=== PATIENT | male | born 1990 ===

== ENCOUNTER 2016-08-16 01:20 | Inpatient (IN) | payer OTHER ==
[2016-08-16 02:32] VITALS: BMI 32.8
[2016-08-16] MEDS ORDERED: Sodium Chloride 0.9% 1,000 ML IV STA (02:52)
--- NOTE | 2016-08-16 03:04 | ED PDOC ---
Arrival/HPI - General Chief Complaint: Back Pain Time Seen by Provider: 08/16/16 02:42 Historian: Patient - History of Present Illness Narrative History of Present Illness (Text): 08/16/16 03:00 Lester Dinero is a 26 year old male, with no significant past medical history, presents to the emergency department complaining of 1 day duration of intermittent left lower back/flank discomfort which radiates to the left abdomen. Patient states that he works out, but is unsure if symptoms are related to it. Denies any history of blunt trauma. States that he still has the pain, but has subsided significantly since onset. Denies fever, chills, headache , dizziness, chest pain, difficulty breathing, abdominal pain, nausea, vomiting , diarrhea, urinary symptoms, or any other complaints at this time. Time/Duration: Other (1 day ) Symptom Onset: Gradual Symptom Course: Unchanged, Intermittent Severity Level: Mild Past Medical History - Provider Review Nursing Documentation Reviewed: Yes - Psychiatric Hx Substance Use: No Family/Social History - Physician Review Nursing Documentation Reviewed: Yes Family/Social History: No Known Family HX Smoking Status: no Hx Alcohol Use: No Hx Substance Use: No Allergies/Home Meds Allergies/Adverse Reactions: Allergies No Known Allergies Allergy (Verified 08/16/16 02:32) Home Medications: Home Meds Medication Instructions Recorded Confirmed No Known Home Med 08/16/16 08/16/16 Review of Systems - Physician Review All systems were reviewed & negative as marked: Yes - Review of Systems Constitutional: absent: Fatigue, Fevers Respiratory: Normal. absent: SOB, Cough Cardiovascular: Normal. absent: Chest Pain, Palpitations Gastrointestinal: Abdominal Pain (left abdomen ). absent: Diarrhea, Nausea, Vomiting Genitourinary Male: Normal. absent: Dysuria, Frequency Musculoskeletal: Back Pain (left lower back/flank pain ). absent: Arthralgias Neurological: Normal. absent: Headache, Dizziness Psychiatric: Normal Physical Exam Vital Signs Reviewed: Yes Vital Signs Temp Pulse Resp BP Pulse Ox 08/16/16 09:09 98.6 F 71 18 113/56 L 98 08/16/16 07:56 75 18 118/42 L 98 08/16/16 02:42 98.2 F 76 18 134/70 99 Temperature: Afebrile Blood Pressure: Normal Pulse: Regular Respiratory Rate: Normal Appearance: Positive for: Well-Appearing, Non-Toxic, Comfortable Pain Distress: None Mental Status: Positive for: Alert and Oriented X 3 - Systems Exam Head: Present: Atraumatic, Normocephalic Pupils: Present: PERRL Extroacular Muscles: Present: EOMI Conjunctiva: Present: Normal Mouth: Present: Moist Mucous Membranes Respiratory/Chest: Present: Clear to Auscultation, Good Air Exchange. No: Respiratory Distress, Accessory Muscle Use Cardiovascular: Present: Regular Rate and Rhythm, Normal S1, S2. No: Murmurs Abdomen: Present: Normal Bowel Sounds. No: Tenderness, Distention, Peritoneal Signs, Rebound, Guarding Back: Present: Normal Inspection. No: CVA Tenderness, Midline Tenderness, Paraspinal Tenderness Upper Extremity: Present: Normal Inspection. No: Cyanosis, Edema Lower Extremity: Present: Normal Inspection. No: Edema Neurological: Present: GCS=15, CN II-XII Intact, Speech Normal Skin: Present: Warm, Dry, Normal Color. No: Rashes Psychiatric: Present: Alert, Oriented x 3, Normal Insight, Normal Concentration Medical Decision Making ED Course and Treatment: 08/16/16 03:08 Impression: A 26 year old male who presents to the emergency department complaining of 1 day duration of intermittent left lower back/ flank pain radiation to the left abdomen. Plan: -- CT abdomen pelvis -- Labs -- IV fluids -- Toradol -- Urinalysis -- Reassess and disposition Progress Notes: 08/16/16 07:30 Case was d/w who accepted pt. to his service. - Lab Interpretations Microbiology Results: Microbiology Results 08/16/16 07:00 Blood-Venous Blood Culture - Preliminary NO GROWTH AFTER 24 HOURS 08/16/16 06:30 Blood-Venous Blood Culture - Preliminary NO GROWTH AFTER 24 HOURS Lab Results: 08/16/16 02:59 08/16/16 02:59 Lab Results 08/16/16 08:35: pCO2 40, pO2 99.0, HCO3 24.2, ABG pH 7.39, ABG Total CO2 25.4, ABG O2 Saturation 99.2 H, ABG O2 Content 16.4, ABG Base Excess -0.7, ABG Hemoglobin 12.0, ABG Carboxyhemoglobin 1.8 H, POC ABG HHb (Measured) 0.8, ABG Methemoglobin 0.7, ABG O2 Capacity 16.5, Hgb O2 Saturation 96.7, FiO2 21.0 08/16/16 02:59: WBC 9.9, RBC 4.87, Hgb 13.4 L, Hct 39.6 L, MCV 81.3, MCH 27.5, MCHC 33.8, RDW 13.3, Plt Count 247, MPV 10.7, Gran % 64.0, Lymph % (Auto) 24.0, Wirt % (Auto) 8.0 H, Eos % (Auto) 3.5, Baso % (Auto) 0.5, Gran # 6.33, Lymph # 2.4, Wirt # 0.8 H, Eos # 0.4, Baso # 0.05 08/16/16 02:59: Sodium 138, Potassium 4.0, Chloride 99, Carbon Dioxide 30, Anion Gap 13, BUN 16, Creatinine 1.4, Est GFR ( Amer) > 60, Est GFR (Non- Af Amer) > 60, Random Glucose 84, Calcium 9.0, Total Bilirubin 0.6, AST 42, ALT 43, Alkaline Phosphatase 55, Lactate Dehydrogenase 664, Total Creatine Kinase 640 H, CK-MB (CK-2) 2.3, CK-MB (CK-2) % 0.4 L, Troponin I < 0.01, Total Protein 7.7, Albumin 4.2, Globulin 3.5, Albumin/Globulin Ratio 1.2, Amylase 124, Lipase 140 08/16/16 02:55: Urine Color Yellow, Urine Appearance Clear, Urine pH 6.0, Ur Specific [place] 1.020, Urine Protein Negative, Urine Glucose (UA) Negative, Urine Ketones Negative, Urine Blood Trace-intact H, Urine Nitrate Negative, Urine Bilirubin Negative, Urine Urobilinogen 0.2, Ur Leukocyte Esterase Negative , Urine RBC 0 - 2, Urine WBC 0 - 2, Ur Epithelial Cells 0 - 2 I have reviewed the lab results: Yes - RAD Interpretation Radiology Orders: 08/16/16 02:51 ABD & PELVIS W/O PO OR IV CONT [CT] Stat 08/16/16 08:29 CHEST PORTABLE [RAD] Stat Insole Stiffener: Radiologist - Medication Orders Current Medication Orders: Albuterol/Ipratropium (Duoneb 3 Mg/0.5 Mg (3 Ml) Ud) 3 ml IH [id number] KALEB Last Admin: 08/17/16 14:01 Dose: 3 ml Heparin Sodium (Porcine) (Heparin) 5,000 units SC Q8H KALEB PRN Reason: Protocol Last Admin: 08/17/16 09:23 Dose: 5,000 units Hydromorphone HCl (Dilaudid) 0.5 mg IVP Q4H PRN PRN Reason: Pain, moderate (4-7) Last Admin: 08/16/16 23:35 Dose: 0.5 mg Re-Assess: [facility] Pain Assessment Document 08/17/16 00:35 KTB (Rec: 08/17/16 04:40 KTB [id number]) Pain Reassessment Is this a pain reassessment? Yes Sleep Is patient sleeping during reassessment? No Presence of Pain Presence of Pain No Ceftriaxone Sodium (Rocephin 1 Gram Ivpb) 1 gm in 100 mls @ 100 mls/hr IVPB DAILY KALEB PRN Reason: Protocol Last Admin: 08/17/16 09:15 Dose: 100 mls/hr Sodium Chloride (Sodium Chloride 0.9%) 1,000 mls @ 150 mls/hr IV .Q6H40M KALEB Stop: 08/19/16 02:54 Last Infusion: 08/17/16 02:51 Dose: 150 mls/hr Doxycycline Hyclate 100 mg/ (Sodium Chloride) 100 mls @ 100 mls/hr IVPB Q12 KALEB PRN Reason: Protocol Ondansetron HCl (Zofran Inj) 4 mg IVP Q4H PRN PRN Reason: Nausea/Vomiting Pantoprazole Sodium (Protonix Ec Tab) 40 mg PO 0630 [facility] Last Admin: 08/17/16 05:57 Dose: 40 mg Discontinued Medications Sodium Chloride (Sodium Chloride 0.9%) 1,000 mls @ 999 mls/hr IV .Q1H1M STA Stop: 08/16/16 03:52 Last Admin: 08/16/16 03:44 Dose: 999 mls/hr Azithromycin (Zithromax 500mg In Ns) Confirm Administered Dose 500 mg in 250 mls @ ud IVPB .STK-MED ONE Stop: 08/16/16 06:44 Ceftriaxone Sodium (Rocephin 1 Gram Ivpb) Confirm Administered Dose 1 gm in 100 mls @ ud IVPB .STK-MED ONE Stop: 08/16/16 06:44 Ceftriaxone Sodium (Rocephin 1 Gram Ivpb) 1 gm in 100 mls @ 100 mls/hr IVPB STAT STA Stop: 08/16/16 06:59 Azithromycin (Zithromax 500mg In Ns) 500 mg in 250 mls @ 167 mls/hr IVPB STAT STA Stop: 08/16/16 07:29 Iohexol (Omnipaque 350 100 Ml) Confirm Administered Dose 350 mg .ROUTE .STK-MED ONE Stop: 08/16/16 11:14 Ketorolac Tromethamine (Toradol) 30 mg IVP ONCE ONE Stop: 08/16/16 02:53 Last Admin: 08/16/16 03:44 Dose: 30 mg Morphine Sulfate (Morphine) Confirm Administered Dose 2 mg .ROUTE .STK-MED ONE Stop: 08/16/16 06:44 Morphine Sulfate (Morphine) 2 mg IVP STAT STA Stop: 08/16/16 06:01 Pantoprazole Sodium (Protonix Ec Tab) 40 mg PO STAT STA Stop: 08/16/16 08:03 Last Admin: 08/16/16 08:56 Dose: 40 mg - Didieribe Statement The provider has reviewed the documentation as recorded by the Pepito Riddle Provider Attestation: All medical record entries made by the Pepito were at my direction and personally dictated by me. I have reviewed the chart and agree that the record accurately reflects my personal performance of the history, physical exam, medical decision making, and the department course for this patient. I have also personally directed, reviewed, and agree with the discharge instructions and disposition. Disposition/Present on Arrival - Present on Arrival Any Indicators Present on Arrival: No History of DVT/PE: No History of Uncontrolled Diabetes: No Urinary Catheter: No History of Decub. Ulcer: No History Surgical Site Infection Following: None - Disposition Have Diagnosis and Disposition been Completed?: Yes Diagnosis: Back pain, Rhabdomyolysis, Pneumonia, Pleural effusion Disposition: HOSPITALIZED Disposition Time: 08:26 Patient Plan: Admission Patient Problems: Current Active Problems Problem Status Onset Back pain Acute Pleural effusion Acute Pneumonia Acute Rhabdomyolysis Acute Condition: STABLE
[2016-08-16 03:23] LABS: ADD MANUAL DIFF? NO
[2016-08-16 03:25] LABS: URINE BILIRUBIN NEGATIVE (NEGATIVE); URINE BLOOD TRACE-INTACT (NEGATIVE); URINE GLUCOSE (UA) NEGATIVE (NEGATIVE); URINE KETONE NEGATIVE (NEGATIVE); URINE LEUKOCYTE ESTERASE NEGATIVE Leu/uL (NEGATIVE); URINE PROTEIN NEGATIVE mg/dL (<30 mg/dL); URINE UROBILINOGEN 0.2 E.U./dL (<1 E.U./dL)
[2016-08-16 03:28] LABS: BASO # 0.05 K/mm3 (0.0-2.0); BASO % 0.5 % (0.0-3.0); EOS # 0.4 (0.0-0.7); EOS % 3.5 % (1.5-5.0); GRAN # 6.33 (1.4-6.5); HEMATOCRIT 39.6 % (42.0-52.0); LYMPH # 2.4 (1.2-3.4); MEAN CELL VOLUME 81.3 fL (80.0-105.0); MEAN CORPUSCULAR HEMOGLOBIN 27.5 pg (25.0-35.0); MEAN CORPUSCULAR HGB CONC 33.8 g/dl (31.0-37.0); MEAN PLATELET VOLUME 10.7 fl (7.0-11.0); MONO # 0.8 (0.1-0.6); PLATELET COUNT 247 10^3/uL (120.0-450.0); RED CELL DISTRIBUTION WIDTH 13.3 % (11.5-14.5); WHITE BLOOD COUNT 9.9 10^3/ul (4.5-11.0)
[2016-08-16 03:32] LABS: URINE APPEARANCE CLEAR (CLEAR); URINE COLOR YELLOW (YELLOW)
[2016-08-16 03:33] LABS: ALB/GLOB RATIO 1.2 (1.1-1.8); ALKALINE PHOSPHATASE 55 U/L (38-133); ALT/SGPT 43 U/L (7-56); AMYLASE 124 U/L (35-125); AST/SGOT 42 U/L (15-59); BILIRUBIN,TOTAL 0.6 mg/dL (0.2-1.3); BLOOD UREA NITROGEN 16 mg/dL (7-21); CARBON DIOXIDE 30 mmol/L (21-33); CHLORIDE 99 mmol/L (95-110); GFR AFRICAN-AMERICAN > 60; GLUCOSE,RANDOM 84 mg/dL (70-110); LIPASE 140 U/L (23-300); SODIUM 138 mmol/L (132-148); TOTAL PROTEIN 7.7 g/dL (5.8-8.3)
[2016-08-16 03:35] LABS: URINE EPITHELIAL CELLS 0 - 2 /hpf (0-5); URINE RBC 0 - 2 /hpf (0-2); URINE WBC 0 - 2 /hpf (0-6)
[2016-08-16] MEDS ORDERED: cefTRIAXone 1 gm in NS 100ml IVPB STA (06:00)
[2016-08-16] MEDS ORDERED: Azithromycin 500MG/NS 250ml 500 MG/250 ML BAG IVPB STA (06:00)
[2016-08-16] MEDS ORDERED: Morphine 2 mg/ml ISec IVP STA (06:00)
[2016-08-16] MEDS ORDERED: Morphine 2 mg/ml ISec ONE (06:43)
[2016-08-16] MEDS ORDERED: Azithromycin 500MG/NS 250ml 500 MG/250 ML BAG IVPB ONE (06:43)
[2016-08-16] MEDS ORDERED: cefTRIAXone 1 gm 1 GM/100 ML BAG IVPB ONE (06:43)
[2016-08-16 07:14] LABS: TROPONIN I < 0.01 ng/mL
--- NOTE | 2016-08-16 07:36 | CT ---
PROCEDURE: CT Abdomen and Pelvis without intravenous contrast HISTORY: left flank pain COMPARISON: None. TECHNIQUE: Without contrast.. Contrast Dose: 0 Radiation dose: Total exam DLP = not indicated mGy-cm. This CT exam was performed using one or more of the following dose reduction techniques: Automated exposure control, adjustment of the mA and/or kV according to patient size, and/or use of iterative reconstruction technique. FINDINGS: LOWER THORAX: Minimal pleural thickening at posterior left lung base, nonspecific. LIVER: Hepatomegaly. Diffusely diminished attenuation of the liver consistent with fatty infiltration. No mass. No biliary ductal dilatation. GALLBLADDER AND BILE DUCTS: Gallbladder contracted. No calcified gallstones identified. PANCREAS: Unremarkable. No gross lesion or ductal dilatation. SPLEEN: Unremarkable. ADRENALS: Unremarkable. No mass. KIDNEYS AND URETERS: Unremarkable. No hydronephrosis. No solid mass. No renal or ureteral calculus. VASCULATURE: Unremarkable. No aortic aneurysm. BOWEL: Unremarkable. No obstruction. No gross mural thickening. APPENDIX: Unremarkable. Normal appendix. PERITONEUM: Unremarkable. No free fluid. No free air. LYMPH NODES: Unremarkable. No enlarged lymph nodes. BLADDER: Poorly distended. No gross abnormality. REPRODUCTIVE: Unremarkable prostate. BONES: No acute fracture. OTHER FINDINGS: None. IMPRESSION: Hepatomegaly with diffuse fatty infiltration of the liver. No evidence of urinary calculus or urinary tract obstruction. No additional abnormality. Preliminary interpretation of this examination was reported by [employer] at 4:07 a.m. on 08/16/2016. There is concurrence of this report with the preliminary interpretation.
[2016-08-16] MEDS ORDERED: Pantoprazole 40 mg EC Tab PO STA (08:02)
[2016-08-16 08:38] LABS: ARTERIAL BLOOD GAS HCO3 24.2 mmol/L (21-28); ARTERIAL BLOOD GAS O2 CAPACITY 16.5 mL/dl (16-24); ARTERIAL BLOOD GAS O2 CONTENT 16.4 ML/dl (15-23); ARTERIAL BLOOD GAS PH 7.39 (7.35-7.45); ARTERIAL BLOOD HGB O2 SAT 96.7 % (95.0-98.0); CARBOXYHEMOGLOBIN 1.8 % (0.5-1.5); HHB 0.8 % (0-5); METHEMOGLOBIN 0.7 % (0.0-3.0)
[2016-08-16] MEDS: Sodium Chloride 0.9% 1,000 ML IV SCH ×2 (08:56→20:15)
--- NOTE | 2016-08-16 09:28 | RAD ---
HISTORY: Not provided COMPARISON: No prior. FINDINGS: LUNGS: No active pulmonary disease. PLEURA: No significant pleural effusion identified, no pneumothorax apparent. CARDIOVASCULAR: Normal. OSSEOUS STRUCTURES: No significant abnormalities. VISUALIZED UPPER ABDOMEN: Normal. OTHER FINDINGS: None. IMPRESSION: No active disease.
[2016-08-16 09:30] LABS: INR 0.94 (0.93-1.08); PARTIAL THROMBOPLASTIN TIME 26.8 Seconds (23.7-30.8)
[2016-08-16 09:31] LABS: PHOSPHOROUS 3.7 mg/dL (2.5-4.5); URIC ACID 4.8 mg/dL (3.5-8.5)
[2016-08-16 09:44] LABS: D DIMER 0.2 mg/L FEU (0-0.50)
[2016-08-16] MEDS: cefTRIAXone 1 gm 1 GM/100 ML BAG IVPB SCH (10:44)
[2016-08-16] MEDS: Albuterol-Ipratrop 3 mg / 0.5 (3 ml) UD IH SCH ×4 (11:12→23:23)
[2016-08-16] MEDS ORDERED: Iohexol 350 MG/100 ML VIAL ONE (11:13)
--- NOTE | 2016-08-16 11:15 | CARD ---
APPROVED REPORT EKG Measurement Heart [id number] <Conclusion> Normal sinus rhythm Normal ECG
--- NOTE | 2016-08-16 11:46 | HP ---
HISTORY OF PRESENT ILLNESS: The patient is a 26-year-old male who presented to the Emergency Room wi th 2 days' complaints of left flank pain, left chest pain, left-sided rib cage pain which increases w ith movement, which has been increasing in severity and frequency over the last 2 days. The patient also reports that with deep inspiration the pain gets worse. According to the ER physician boaz frost, the patient presented with a 1-2 day complaint of left lower back pain, left rib cage pain, left f lank pain radiating to the left side of the abdomen in the middle of the abdomen, which is worse with movement. REVIEW OF SYSTEMS: A 13-system review was done. Pertinent positive and negative dictated above. CODE STATUS: Full code. LIVING WILL AND ADVANCED DIRECTIVE: None. HEIGHT: 5 feet 11 inches. WEIGHT: 235 pounds. BMI: 33. HOME MEDICATIONS: None. SOCIAL HISTORY: Positive for social alcohol. Denies drug use. Denies communicable transmissible di sease. Denies smoking. FAMILY HISTORY: Father is 55 and mother is 50 with no reported medical conditions. OCCUPATIONAL HISTORY: The patient works in a warehouse. PAST SURGICAL HISTORY: Positive for jaw surgery according to the patient. The patient is seen in stretcher #3 in the Emergency Room, then the patient was seen in room 375, bed 2. PHYSICAL EXAMINATION: VITAL SIGNS: T-max 98.6, pulse 75-76, blood pressure 113/56, 118/42, respirations 18, O2 sat 98%. T he patient is seen lying in the bed. HEAD: Normocephalic, atraumatic. HEENT: Shows pink conjunctivae. No oropharyngeal lesion. No neck rigidity. Dry oral mucosa. [place] conjunctivae, anicteric sclerae. CHEST: Symmetrical. Kyphosis. LUNGS: Shows questionable decreased breath sound at the left base, occasional rhonchi, left more rosa maria n the right. CARDIOVASCULAR: S1, S2, regular rhythm. Questionable systolic murmur left sternal border, left se[place] intercostal space. ABDOMEN: Soft, positive bowel sounds. Positive left lateral anterior rib cage tenderness. Positive left upper quadrant tenderness. No costovertebral angle tenderness. No hepatosplenomegaly palpated . No guarding, no rigidity, no rebound tenderness. GENITALIA: Male. RECTAL: Deferred. EXTREMITIES: Shows no pitting edema, no calf tenderness, no Homans' sign. NEUROLOGIC: The patient is alert, awake, oriented x 3. Cranial nerves II-XII intact. Gait examinat ion is not tested. Neuro examination without any gross deficit. MUSCULOSKELETAL: Shows a body mass index of 33. PSYCHIATRIC: Negative for any auditory or visual hallucinations. Negative for suicidal or homicidal ideation. Negative for any psychiatric issues. DIAGNOSTICS: WBC 9.9, hemoglobin and hematocrit 13.4 and 39.6, platelets 247. PT, PTT 10.1 and 26.8 . D-dimer 0.20. ABG on room air, pH of 7.39, pCO2 of 40, pO2 99, bicarb 24, saturation 99.2. Sodiu m 138, potassium 4.0, chloride 99, CO2 30, anion gap 13, BUN 16, creatinine 1.4, which is high normal , GFR greater than 60, glucose 84. Uric acid 4.8, phosphorus 3.7. LFTs are normal. CPK 640. Tropo sharmila 0.01. Cholesterol 141, LDL 68, HDL 32, triglycerides 207. Amylase and lipase is normal. Urinal ysis, pH 6.0, specific gravity 1.020, trace blood. The patient had CT of the abdomen and pelvis done . CT scan of the abdomen and pelvis was done without p.o. or IV contrast, which shows left lung base pleural thickening, etiology undetermined, hepatomegaly with hepatic fatty infiltration. Chest x-ra y was reviewed. EKG done in the Emergency Room shows sinus rhythm, S wave in lead 3. The patient wa s seen in the Emergency Room by the ER physician, Dr. Cardona. The patient was given IV fluid. T he patient was given IV antibiotic. The patient was given Zithromax, Rocephin, morphine. The patien t was advised to be admitted. IMPRESSION: 1. Left-sided chest pain, left flank pain and left abdominal pain, questionable left lower lobe tu y pneumonia versus pleural effusion. 2. Possible mild rhabdomyolysis with elevated CPK. 3. Hypotension. 4. Hypovolemia. 5. Mild normocytic anemia. 6. Trace microscopic hematuria. 7. Left lower lobe pleural thickening versus effusion versus infiltrate. 8. Hepatomegaly with fatty infiltration of the liver and hepatic steatosis. 9. Morbid obesity with elevated body mass index of 33. 10. History of protein supplements and use. 11. Possible myoglobinuria. PLAN: At this time, the patient has been admitted by Dr. Cardona to med/surg floor. The patient has been ordered CRP, drug screen, serial labs, myoglobin has been ordered, ESR, CBC, blood cultures have been ordered. The patient is started on Dilaudid 0.5 mg IV q. 4 p.r.n., DuoNeb nebulizer every 6 hours, heparin 5000 subQ q. 8, Protonix 40 mg daily, Rocephin 1 gram IV daily, 0.9 normal saline at 150 mL an hour, Zofran [address] of the chest with contrast ordered, EKG ordered, echo with Doppler ordered. A regular diet ordered. Out of bed as ordered. The patient was explained about the details of his medical condition, need for further diagnostic and therapeutic intervention, need for further treatment was discussed and explained to the patient and all questions and concerns answered to his satisfaction. The patient's further management will be dependent upon the patient's clinical condition, hemodynamic status, and as per patient's response to therapeutic intervention, as per patient's diagnostic test results. Dictated and electronically signed, not read. Misha Dunn MD cc: [id number] TT: 08/16/2016 11:45:16 cn
--- NOTE | 2016-08-16 12:34 | CT ---
PROCEDURE: CT Chest with contrast HISTORY: CHEST PAIN COMPARISON: None. TECHNIQUE: Contiguous axial images were obtained through the chest with intravenous contrast enhancement. Sagittal and coronal reconstructions were performed. IV contrast: 100 mL Omnipaque 350 Radiation dose (DLP): 873.13 mGy-cm. This CT exam was performed using one or more of the following dose reduction techniques: Automated exposure control, adjustment of the mA and/or kV according to patient size, and/or use of iterative reconstruction technique. FINDINGS: LUNGS: Mild multifocal ground-glass opacities in the right lower lobe common nonspecific. Possible pneumonia. Normal trace right pleural effusion. Small left pleural effusion. Minimal bilateral lower lobe compressive atelectasis, left greater than right. MEDIASTINUM: Unremarkable thoracic aorta. No aneurysm or dissection. Normal sized heart. Main pulmonary artery unremarkable. No vascular congestion. No lymphadenopathy. Soft tissue density in anterior superior mediastinum consistent with residual thymic tissue. PLEURA: As above. Trace right and small left pleural effusion. BONES: No fracture. No destructive lesion. UPPER ABDOMEN: Diminished attenuation of the liver consistent with fatty infiltration. OTHER FINDINGS: None. IMPRESSION: Mild multifocal ground-glass opacities in right lower lobe, possibly representing pneumonia but nonspecific. Trace right and small left pleural effusion with bilateral compressive atelectasis. Probable fatty infiltration of the liver. No additional abnormality.
[2016-08-16] MEDS: HYDROmorphone 0.5 mg/0.5 ml ISec IVP PRN ×2 (14:52→23:35)
[2016-08-17] MEDS: Albuterol-Ipratrop 3 mg / 0.5 (3 ml) UD IH SCH ×4 (01:55→19:48)
[2016-08-17] MEDS: Sodium Chloride 0.9% 1,000 ML IV SCH (02:51)
[2016-08-17] MEDS: Pantoprazole 40 mg EC Tab PO SCH (05:57)
[2016-08-17 06:10] LABS: CARDIO CRP(R) 30.7 mg/L
[2016-08-17 07:09] LABS: ADD MANUAL DIFF? NO
[2016-08-17 07:19] LABS: BASO # 0.05 K/mm3 (0.0-2.0); BASO % 0.6 % (0.0-3.0); EOS # 0.2 (0.0-0.7); EOS % 2.7 % (1.5-5.0); GRAN % 67.9 % (50.0-68.0); HEMATOCRIT 37.1 % (42.0-52.0); LYMPH # 1.8 (1.2-3.4); MEAN CELL VOLUME 81.9 fL (80.0-105.0); MEAN CORPUSCULAR HEMOGLOBIN 26.5 pg (25.0-35.0); MEAN CORPUSCULAR HGB CONC 32.3 g/dl (31.0-37.0); MEAN PLATELET VOLUME 10.5 fl (7.0-11.0); MONO # 0.7 (0.1-0.6); MONO % 7.8 % (1.0-6.0); PLATELET COUNT 225 10^3/uL (120.0-450.0); RED CELL DISTRIBUTION WIDTH 13.5 % (11.5-14.5); WHITE BLOOD COUNT 8.4 10^3/ul (4.5-11.0)
[2016-08-17 07:30] LABS: ALB/GLOB RATIO 1.1 (1.1-1.8); ALKALINE PHOSPHATASE 49 U/L (38-133); ALT/SGPT 42 U/L (7-56); AST/SGOT 26 U/L (15-59); BILIRUBIN,DIRECT 0.3 mg/dL (0.0-0.4); BILIRUBIN,TOTAL 0.6 mg/dL (0.2-1.3); BLOOD UREA NITROGEN 11 mg/dL (7-21); CALCIUM 8.5 mg/dL (8.4-10.5); CARBON DIOXIDE 26 mmol/L (21-33); CHLORIDE 104 mmol/L (98-107); GFR AFRICAN-AMERICAN > 60; GLUCOSE,RANDOM 94 mg/dL (70-110); MAGNESIUM 1.9 mg/dL (1.7-2.2); PHOSPHOROUS 3.6 mg/dL (2.5-4.5); POTASSIUM 3.7 mmol/L (3.6-5.0); SODIUM 140 mmol/L (132-148); TOTAL PROTEIN 6.9 g/dL (5.8-8.3)
[2016-08-17] MEDS: cefTRIAXone 1 gm 1 GM/100 ML BAG IVPB SCH (09:15)
[2016-08-17 09:44] LABS: TROPONIN I < 0.01 ng/mL
--- NOTE | 2016-08-17 14:09 | PN ---
DATE: 08/17/2016 The patient is seen with the patient's nurse, Torie. The patient is seen lying in the bed. Overnight events were noted and patient was explained about the details of HIPAA laws to the patient and the patient's relative. The patient stated that the left-sided rib cage pain and abdominal pain is resolved at this moment. The patient is seen lying in the bed, comfortable. PHYSICAL EXAMINATION: VITAL SIGNS: T-max is 98.9, pulse 72, blood pressure 105/59, respirations 18, O2 sat 98%. HEAD: Normocephalic, atraumatic. HEENT: Shows pink conjunctivae. Anicteric sclerae. No oropharyngeal lesion. NECK: No neck rigidity. CHEST: Symmetrical. LUNGS: Positive rhonchi, questionable decreased breath sounds at the left base. Positive rhonchi, occasional creps. CARDIOVASCULAR: Shows S1, S2, regular rhythm. ABDOMEN: Soft, positive bowel sounds, no left upper quadrant, left flank, left rib cage tenderness. Positive bowel sounds. GENITALIA: Male. Not examined. RECTAL: Deferred. EXTREMITIES: Shows no pitting edema, no calf tenderness, no Lissette sign. NEUROLOGIC: The patient is alert, awake, oriented x 3. Cranial nerves II-XII are intact. Gait examination could not be tested as patient is seen sitting up in the bed. The patient was encouraged to be out of bed, ambulate and sit in the chair. The patient was encouraged to do incentive spirometry. PSYCHIATRIC: Negative for anxiety, depression. Negative for suicidal or homicidal ideation. Negative for auditory or visual hallucinations. LABORATORY AND DIAGNOSTICS: WBC 8.4, hemoglobin and hematocrit 12 and 37.1, platelets 225. PT, PTT 10.1 and 26.8. D-dimer 0.20. Sodium 140, potassium 3.0 , chloride 104, CO2 of 26, anion gap 14, BUN 11, creatinine 1.0, GFR greater than 60, glucose 94, calcium 8.5, phosphorus 3.6, magnesium 1.9. LFTs are normal. CPK went down to 456. Troponin is negative. Cardiac CRP and high sensitivity CRP is 31 and greater than 15 respectively. LFTs are normal. Triglyceride 207. LDL 68, cholesterol 141, HDL 32. Blood cultures negative. The patient's CT chest was reviewed. CT chest shows multifocal ground-glass opacities of the right lower lobe, possible pneumonia. Bilateral pleural effusion, bilateral lower lobe atelectasis, left more than the right. Fatty infiltration of the liver noted. EKG shows normal EKG. IMPRESSION AND PLAN: 1. Community-acquired multifocal bilateral pneumonia with bibasilar atelectasis , left more than the right, and bilateral pleural effusions. 2. Hepatic steatosis and fatty infiltration of the liver. 3. Morbid obesity with elevated body mass index of 33. 4. Hypotension. 5. Morbid obesity. 6. Normocytic anemia. 7. Elevated CPK. Questionable mild rhabdomyolysis. 8. Elevated cardiac C-reactive protein and high sensitivity C-reactive protein. 9. Hypertriglyceridemia. 10. Trace microscopic hematuria. 11. Anemia. 1. Left-sided chest pain, left flank pain and left abdominal pain, questionable left lower lobe early pneumonia versus pleural effusion. 2. Possible mild rhabdomyolysis with elevated CPK. 3. Hypotension. 4. Hypovolemia. 5. Mild normocytic anemia. 6. Trace microscopic hematuria. 7. Left lower lobe pleural thickening versus effusion versus infiltrate. 8. Hepatomegaly with fatty infiltration of the liver and hepatic steatosis. 9. Morbid obesity with elevated body mass index of 33. 10. History of protein supplements and use. 11. Possible myoglobinuria. Plan at this time, the patient has been ordered iron studies, repeat CMP, LFT, magnesium, phosphorus, B12, folate, serum urine immunofixation, hemoglobin electrophoresis, sickle cell screen. Influenza, mycoplasma, legionella titers ordered. Rapid flu ordered. CURRENT MEDICATIONS: 1. Dilaudid 0.5 IV q. 4 p.r.n. 2. DuoNeb nebulizer every 6 hours. 3. Heparin 5000 subQ q. 8 hours. 4. Protonix 40 mg daily. 5. Rocephin 1 gram IV daily. 6. The patient will be added vibramycin or doxycycline IV piggyback 100 mg IV q. 12. 7. The patient will be started on doxycycline 100 mg IV q. 12. 8. The patient has been ordered DuoNeb nebulizer. The patient has been ordered chest PT. The patient has been ordered incentive spirometry. The patient is continued on IV fluid at 150 mL an hour. The patient is on Zofran 4 IV q. 4 p.r.n. The patient is on chest PT, incentive spirometry, regular diet, out of bed. The patient was explained about all his diagnoses, test results, treatment plan , management plan and need for further diagnostic and therapeutic intervention. Discussed and explained to the patient in layman's language with the patient' s nurse present at the bedside. The patient's mother was in the room with the patient who was informed about the patient's condition by the patient himself. The patient was told about continuation of the above treatment as present. Dictated and electronically signed, not read. Misha Dunn MD cc: [id number] TT: 08/17/2016 14:08:57 Confirmation # [id number] Dictation # [id number] damir [id number]
[2016-08-17 14:37] LABS: IRON 36 ug/dL (45-180)
[2016-08-18] MEDS: Albuterol-Ipratrop 3 mg / 0.5 (3 ml) UD IH SCH ×4 (01:54→19:20)
[2016-08-18] MEDS: Sodium Chloride 0.9% 1,000 ML IV SCH (05:59)
[2016-08-18] MEDS: Pantoprazole 40 mg EC Tab PO SCH (06:01)
[2016-08-18 07:17] LABS: ADD MANUAL DIFF? NO
[2016-08-18 07:22] LABS: BASO # 0.07 K/mm3 (0.0-2.0); BASO % 1.1 % (0.0-3.0); EOS # 0.3 (0.0-0.7); EOS % 4.9 % (1.5-5.0); GRAN # 3.46 (1.4-6.5); GRAN % 54.5 % (50.0-68.0); HEMATOCRIT 37.5 % (42.0-52.0); LYMPH % 31.9 % (22.0-35.0); MEAN CELL VOLUME 82.1 fL (80.0-105.0); MEAN CORPUSCULAR HEMOGLOBIN 26.5 pg (25.0-35.0); MEAN CORPUSCULAR HGB CONC 32.3 g/dl (31.0-37.0); MEAN PLATELET VOLUME 10.3 fl (7.0-11.0); MONO # 0.5 (0.1-0.6); MONO % 7.6 % (1.0-6.0); PLATELET COUNT 238 10^3/uL (120.0-450.0); RED CELL DISTRIBUTION WIDTH 13.5 % (11.5-14.5); WHITE BLOOD COUNT 6.3 10^3/ul (4.5-11.0)
[2016-08-18 07:34] LABS: HEMATOCRIT 38.7 % (38.5-50.0); HEMOGLOBIN 12.8 g/dL (13.2-17.1); RDW 14.4 % (11.0-15.0)
[2016-08-18 07:48] LABS: ALB/GLOB RATIO 1.1 (1.1-1.8); ALKALINE PHOSPHATASE 50 U/L (38-133); ALT/SGPT 42 U/L (7-56); AST/SGOT 27 U/L (15-59); BILIRUBIN,DIRECT 0.4 mg/dL (0.0-0.4); BILIRUBIN,TOTAL 0.5 mg/dL (0.2-1.3); BLOOD UREA NITROGEN 10 mg/dL (7-21); CALCIUM 8.9 mg/dL (8.4-10.5); CARBON DIOXIDE 27 mmol/L (21-33); CHLORIDE 105 mmol/L (98-107); GFR AFRICAN-AMERICAN > 60; GLUCOSE,RANDOM 94 mg/dL (70-110); MAGNESIUM 1.9 mg/dL (1.7-2.2); PHOSPHOROUS 4.4 mg/dL (2.5-4.5); SODIUM 141 mmol/L (132-148); TOTAL PROTEIN 7.2 g/dL (5.8-8.3)
[2016-08-18 08:07] VITALS: RESP 19
[2016-08-18] MEDS: cefTRIAXone 1 gm 1 GM/100 ML BAG IVPB SCH (09:06)
[2016-08-18 10:52] LABS: TOTAL PROTEIN, SERUM 7.2 g/dL (6.1-8.1)
--- NOTE | 2016-08-18 11:36 | PN ---
DATE: 08/18/2016 The patient is seen in room 375, bed 2. The patient is out of bed to chair, ambulating to the bathroom. The patient stated that he is feeling significantly better since the day of hospitalization and day of admission. The patient is alert, awake, responsive. Overnight nurse's notes were reviewed. The patient was seen with the patient's nurse. PHYSICAL EXAMINATION: VITAL SIGNS: T-max is 98.4, heart rate 72-73, blood pressure 105/59, 114/71, respirations 18-20, O2 saturation 97%. HEAD: Normocephalic, atraumatic. HEENT: Shows pinkish conjunctivae, anicteric sclerae. No oropharyngeal lesion. NECK: No neck rigidity. HEAD: Normocephalic, atraumatic. HEENT: Shows pinkish conjunctivae. Anicteric sclerae. No oropharyngeal lesion. NECK: No neck rigidity. CHEST: Kyphosis. LUNGS: Shows occasional rhonchi bilaterally, right more than the left. CARDIOVASCULAR: S1, S2, regular rhythm. ABDOMEN: Soft, positive bowel sounds. GENITALIA: Male. RECTAL: Deferred. EXTREMITIES: Show no pitting edema, no calf tenderness, no Homans' sign. NEUROLOGIC: The patient is alert, awake, oriented x 3. Cranial nerves II-XII intact. ABDOMEN: Soft, positive bowel sounds. GENITALIA: Male. RECTAL: Deferred. VASCULAR: Show no pitting edema, no calf tenderness, no Homans' sign. NEUROLOGIC: The patient is alert, awake, oriented x 3. Cranial nerves II-XII intact. GAIT: Independent. VASCULAR: Palpable pulses. PSYCHIATRIC: Negative. MUSCULOSKELETAL: Shows a body mass index of 33. DIAGNOSTICS: 08/18 - WBC 6.3, hemoglobin and hematocrit 12.1, 37.5, platelets 238. ESR is 5. We are waiting for hemoglobin electrophoresis results. Sodium 141, potassium 4.0, chloride 105, CO2 of 27, anion gap 13, BUN 10, creatinine 1.0. GFR greater than 60, glucose 94, calcium 8.9, phosphorus 4.4, magnesium 1.9. Iron 36, TIBC 239, saturation 15, erythropoietin level pending. Ferritin pending. CPK is down to 405. Serum and immunoelectrophoresis is pending. Urine legionella negative. The patient's echocardiogram result is still pending. Microbiology cultures. IMPRESSION AND PLAN: 1. Community-acquired multifocal bilateral pneumonia with bibasilar atelectasis and bilateral pleural effusion, left more than the right. 2. Hepatic steatosis and fatty infiltration of the liver. 3. Morbid obesity with elevated body mass index of 33. 4. Hypotension. 5. Normocytic iron deficiency anemia. 6. Questionable mild rhabdomyolysis with elevated CPK. 7. Elevated cardiac C-reactive protein and high sensitivity C-reactive protein. 8. Hypertriglyceridemia. 9. Trace microscopic hematuria. 10. Morbid obesity. 11. Normocytic iron deficiency anemia. 12. Iron deficiency anemia with decreased iron, decreased TIBC, decreased iron saturation. 13. Hypotension and hypovolemia. 14. Hepatomegaly with fatty infiltration of the liver and hepatic steatosis. 15. History of protein supplement use. 1. Community-acquired multifocal bilateral pneumonia with bibasilar atelectasis , left more than the right, and bilateral pleural effusions. 2. Hepatic steatosis and fatty infiltration of the liver. 3. Morbid obesity with elevated body mass index of 33. 4. Hypotension. 5. Morbid obesity. 6. Normocytic anemia. 7. Elevated CPK. Questionable mild rhabdomyolysis. 8. Elevated cardiac C-reactive protein and high sensitivity C-reactive protein. 9. Hypertriglyceridemia. 10. Trace microscopic hematuria. 11. Anemia. 1. Left-sided chest pain, left flank pain and left abdominal pain, questionable left lower lobe early pneumonia versus pleural effusion. 2. Possible mild rhabdomyolysis with elevated CPK. 3. Hypotension. 4. Hypovolemia. 5. Mild normocytic anemia. 6. Trace microscopic hematuria. 7. Left lower lobe pleural thickening versus effusion versus infiltrate. 8. Hepatomegaly with fatty infiltration of the liver and hepatic steatosis. 9. Morbid obesity with elevated body mass index of 33. 10. History of protein supplements and use. 11. Possible myoglobinuria. PLAN: At this time, we are awaiting for ferritin, B12, folate, hepatitis panel , HIV results. Repeat labs ordered. HIV results pending. Serum immunofixation , serum electrophoresis, sickle cell studies are pending. CBC is repeated. Hematology/oncology consultation ordered. CURRENT MEDICATIONS: Dilaudid 0.5 mg IV q. 4 p.r.n. Vibramycin 100 mg IV q. 12 , DuoNeb nebulizer every 6 hours, heparin 5000 subQ q. 8., IV Venofer 200 mg IV daily, Protonix 40 daily for GI prophylaxis, Rocephin 1 gram IV daily, IV fluids 0.9 normal saline at 150 mL an hour, Zofran 4 mg IV q. 4 p.r.n. The patient is on chest PT, incentive spirometer, regular diet, out of bed to chair. The patient was seen again with the patient's nurse, ____. The patient was updated about his test results, possible diagnosis. Need for further evaluation and management was discussed, and treatment plan was discussed and explained to the patient at length, and all questions and concerns answered to the satisfaction. All of the above was discussed and explained to the patient in layman's language, which he acknowledged and understood. Dictated and electronically signed, not read. Misha Dunn MD cc: [id number] TT: 08/18/2016 11:35:11 Confirmation # [id number] Dictation # [id number] MTDD
[2016-08-18 13:47] LABS: FOLATE 11.4 ng/mL
--- NOTE | 2016-08-18 14:12 | CARD ---
APPROVED REPORT EXAM: Two-dimensional and M-mode echocardiogram with Doppler and color Doppler. INDICATION Chest Pain 2D DIMENSIONS Left Atrium (2D)4.0 (1.6-4.0cm)IVSd1.0 (0.7-1.1cm) LVDd5.9 (3.9-5.9cm)PWd1.0 (0.7-1.1cm) LVDs4.2 (2.5-4.0cm)FS (%) 30.1 % LVEF (%)56.6 (>50%) M-Mode DIMENSIONS Aortic Root3.00 (2.2-3.7cm)Aortic Cusp Exc.2.10 (1.5-2.0cm) Aortic Valve AoV Peak Feiaajwn791.0cm/Leeann Peak GR.11mmHg Mitral Valve MV E Dtcgopaa710.0cm/sMV A Soqaokmd51.1cm/sE/A ratio1.7 TDI E/Lateral E'0.0E/Medial E'0.0 Tricuspid Valve TR Peak [id number]/sRAP [id number] Peak Gr.27mmHg [id number] LEFT VENTRICLE The left ventricle is normal size. There is normal left ventricular wall thickness. The left ventricular function is normal.EF-55 -60% There is normal LV segmental wall motion. The left ventricular diastolic function is normal. No left ventricle thrombus noted on this study. There is no ventricular septal defect visualized. There is no left ventricular aneurysm. There is no mass noted in the left ventricle. RIGHT VENTRICLE The right ventricle is normal size. There is normal right ventricular wall thickness. The right ventricular systolic function is normal. ATRIA The left atrium is borderline dilated. The right atrium size is normal. The interatrial septum is intact with no evidence for an atrial septal defect. AORTIC VALVE The aortic valve is thickened but opens well. There is trace aortic regurgitation. There is no aortic valvular stenosis. There is no aortic valvular vegetation. MITRAL VALVE The mitral valve is not well visualized. Mitral regurgitation is trace. There is no mitral valve stenosis. There is no evidence of mitral valve prolapse. TRICUSPID VALVE The tricuspid valve is normal in structure. There is mild tricuspid regurgitation.RVSP-37 mmof Hg. There is no tricuspid valve stenosis. There is no tricuspid valve prolapse or vegetation. PULMONIC VALVE The pulmonary valve is normal in structure. GREAT VESSELS The aortic root is normal in size. The ascending aorta is normal in size. The pulmonary artery is normal. The IVC is normal in size and collapses >50% with inspiration. PERICARDIAL EFFUSION There is no pleural effusion. There is no pericardial effusion. <Conclusion> Npormal chamber Size. EF-55-60% Trace MR/AR/ Mild TR, RVSP-37 mmof hg. No vegetation or thrombus noted.
--- NOTE | 2016-08-18 19:21 | CP.PCM.CON ---
History of Present Illness - History of Present Illness History of Present Illness: Hematology Consult Referred by Dr. Dunn for evaluation of anemia HPI- Lester is 26 y/o M with no significant past medical history who was admitted with left flank pain and left lower chest pain. CT A/P showed fatty liver with hepatomegaly and minimal left pleural base thickening. CT Chest showed mild ground glass opacity in RLL- possible pneumonia. He was started on antibiotics. His pain is much better now and denies any other complaints. Denies urinary complaints. His U/A showed trace blood. Blood cx was negative. Review of his blood work showed Hb between 12-13 with low MCV (81). WBC and platelet count was normal. Other significant labs included iron saturation of 15 %, elevation of CK and CRP and normal B12 and folate. He was started on IV iron. He is otherwise healthy, denies fever, chills, night sweats. His appetite is good and denies weight loss. Denies bleeding. Family and social history reviewed and is non contributory. Review of Systems - Review of Systems All systems: reviewed and no additional remarkable complaints except Review of Systems: except in HPI Past Patient History - Past Social History Smoking Status: no - MUSCULOSKELETAL/RHEUMATOLOGICAL Hx Falls: No - PSYCHIATRIC Hx Substance Use: No - SURGICAL HISTORY Other/Comment: jaw surgery Meds Allergies/Adverse Reactions: Allergies Allergy/AdvReac Type Severity Reaction Status Date / Time No Known Allergies Allergy Verified 08/16/16 02:32 - Medications Medications: Current Medications Albuterol/Ipratropium (Duoneb 3 Mg/0.5 Mg (3 Ml) Ud) 3 ml IH [id number] [facility] Last Admin: 08/18/16 14:19 Dose: 3 ml Heparin Sodium (Porcine) (Heparin) 5,000 units SC Q8H [facility] PRN Reason: Protocol Last Admin: 08/18/16 17:15 Dose: 5,000 units Hydromorphone HCl (Dilaudid) 0.5 mg IVP Q4H PRN PRN Reason: Pain, moderate (4-7) Last Admin: 08/16/16 23:35 Dose: 0.5 mg Ceftriaxone Sodium (Rocephin 1 Gram Ivpb) 1 gm in 100 mls @ 100 mls/hr IVPB DAILY [facility] PRN Reason: Protocol Last Admin: 08/18/16 09:06 Dose: 100 mls/hr Sodium Chloride (Sodium Chloride 0.9%) 1,000 mls @ 150 mls/hr IV .Q6H40M [facility] Stop: 08/19/16 02:54 Last Admin: 08/18/16 05:59 Dose: 150 mls/hr Doxycycline Hyclate 100 mg/ (Sodium Chloride) 100 mls @ 100 mls/hr IVPB Q12 [facility] PRN Reason: Protocol Last Admin: 08/18/16 13:26 Dose: 100 mls/hr Iron Sucrose 200 mg/ Sodium (Chloride) 110 mls @ 110 mls/hr IVPB DAILY [facility] Stop: 08/20/16 10:59 Last Admin: 08/18/16 10:10 Dose: 110 mls/hr Ondansetron HCl (Zofran Inj) 4 mg IVP Q4H PRN PRN Reason: Nausea/Vomiting Pantoprazole Sodium (Protonix Ec Tab) 40 mg PO 0630 [facility] Last Admin: 08/18/16 06:01 Dose: 40 mg Physical Exam - Head Exam Head Exam: ATRAUMATIC, NORMAL INSPECTION - Eye Exam Eye Exam: EOMI, PERRL - ENT Exam ENT Exam: Mucous Membranes Moist - Neck Exam Neck exam: Negative for: Lymphadenopathy - Respiratory Exam Respiratory Exam: Clear to Auscultation Bilateral - Cardiovascular Exam Cardiovascular Exam: REGULAR RHYTHM - GI/Abdominal Exam GI & Abdominal Exam: Normal Bowel Sounds, Soft. absent: Organomegaly, Tenderness - Extremities Exam Extremities exam: Negative for: pedal edema Results - Vital Signs Recent Vital Signs: Last Vital Signs Temp 98.0 F 08/18/16 06:00 Pulse 58 L 08/18/16 06:00 Resp 19 08/18/16 06:00 BP 114/71 08/18/16 06:00 Pulse Ox 97 08/18/16 06:00 - Labs Result Diagrams: 08/18/16 05:30 08/18/16 05:30 Labs: Laboratory Results - last 24 hr 08/17/16 08/17/16 08/17/16 14:00 14:00 14:00 WBC RBC Hgb Hct MCV MCH MCHC RDW Plt Count MPV Gran % Lymph % (Auto) P[place] % (Auto) Eos % (Auto) Baso % (Auto) Gran # Lymph # Pinal # Eos # Baso # Sickle Cell Screen TNP Hemoglobinopathy Red Blood Count 4.76 Hemoglobinopathy Hct 38.7 Hemoglobinopathy Hgb 12.8 L Hemoglobinopathy MCV 81.4 Hemoglobinopathy MCH 26.8 L Hemoglobinopathy RDW 14.4 Sodium Potassium Chloride Carbon Dioxide Anion Gap BUN Creatinine Est GFR ( Amer) Est GFR (Non-Af Amer) Random Glucose Calcium Phosphorus Magnesium Erythropoietin 24.3 H Ferritin 183.0 Total Bilirubin Direct Bilirubin AST ALT Alkaline Phosphatase Total Creatine Kinase CK-MB (CK-2) CK-MB (CK-2) % Total Protein Total Protein (PEP) 7.2 Albumin Globulin Albumin/Globulin Ratio Vitamin B12 911 Folate 11.4 Urine Immunofixation Hepatitis A IgM Ab Hep Bs Antigen Hep B Core IgM Ab Hepatitis C Antibody Ur L.pneumophila Ag 08/17/16 08/17/16 08/18/16 14:50 14:50 05:30 WBC 6.3 D RBC 4.57 Hgb 12.1 L Hct 37.5 L MCV 82.1 MCH 26.5 MCHC 32.3 RDW 13.5 Plt Count 238 MPV 10.3 Gran % 54.5 Lymph % (Auto) 31.9 P[place] % (Auto) 7.6 H Eos % (Auto) 4.9 Baso % (Auto) 1.1 Gran # 3.46 Lymph # 2.0 Pinal # 0.5 Eos # 0.3 Baso # 0.07 Sickle Cell Screen Hemoglobinopathy Red Blood Count Hemoglobinopathy Hct Hemoglobinopathy Hgb Hemoglobinopathy MCV Hemoglobinopathy MCH Hemoglobinopathy RDW Sodium Potassium Chloride Carbon Dioxide Anion Gap BUN Creatinine Est GFR ( Amer) Est GFR (Non-Af Amer) Random Glucose Calcium Phosphorus Magnesium Erythropoietin Ferritin Total Bilirubin Direct Bilirubin AST ALT Alkaline Phosphatase Total Creatine Kinase CK-MB (CK-2) CK-MB (CK-2) % Total Protein Total Protein (PEP) Albumin Globulin Albumin/Globulin Ratio Vitamin B12 Folate Urine Immunofixation See note Hepatitis A IgM Ab Hep Bs Antigen Hep B Core IgM Ab Hepatitis C Antibody Ur L.pneumophila Ag Negative 08/18/16 08/18/16 05:30 07:30 WBC RBC Hgb Hct MCV MCH MCHC RDW Plt Count MPV Gran % Lymph % (Auto) Pinal % (Auto) Eos % (Auto) Baso % (Auto) Gran # Lymph # Pinal # Eos # Baso # Sickle Cell Screen Hemoglobinopathy Red Blood Count Hemoglobinopathy Hct Hemoglobinopathy Hgb Hemoglobinopathy MCV Hemoglobinopathy MCH Hemoglobinopathy RDW Sodium 141 Potassium 4.0 Chloride 105 Carbon Dioxide 27 Anion Gap 13 BUN 10 Creatinine 1.0 Est GFR ( Amer) > 60 Est GFR (Non-Af Amer) > 60 Random Glucose 94 Calcium 8.9 Phosphorus 4.4 Magnesium 1.9 Erythropoietin Ferritin Total Bilirubin 0.5 Direct Bilirubin 0.4 AST 27 ALT 42 Alkaline Phosphatase 50 Total Creatine Kinase 405 H CK-MB (CK-2) 0.6 CK-MB (CK-2) % Cancelled Total Protein 7.2 Total Protein (PEP) Albumin 3.8 Globulin 3.5 Albumin/Globulin Ratio 1.1 Vitamin B12 Folate Urine Immunofixation Hepatitis A IgM Ab Negative Hep Bs Antigen Negative Hep B Core IgM Ab Negative Hepatitis C Antibody Negative Ur L.pneumophila Ag Assessment & Plan - Assessment and Plan (Free Text) Assessment: Mild low normocytic anemia with iron def. NO specific etiology for iron def though ocult blood loss should be ruled out. His U/A also showed trace blood, though it may not be sufficient to cause iron def. Check stool ocult. Consider GI evaluation (as outpatient) to identify source of blood loss. Repeat U/A and consider urine culture (though he is already on antibiotics). F/U Hb electrophoresis and SPEP. Agree with IV Venofer. He can continue iron supplement as outpatient. Continue to monitor his blood counts routinely Thank you for the consult Neil Harmon - Date & Time Date: 08/18/16 Time: 19:21
[2016-08-18 19:49] VITALS: TEMP 98.3
[2016-08-19] MEDS: Albuterol-Ipratrop 3 mg / 0.5 (3 ml) UD IH SCH ×2 (02:30→07:37)
[2016-08-19] MEDS ORDERED: Pantoprazole 40 mg EC Tab PO SCH (05:38)
[2016-08-19 07:09] LABS: ADD MANUAL DIFF? NO
[2016-08-19 07:22] LABS: BASO % 1.4 % (0.0-3.0); EOS # 0.4 (0.0-0.7); EOS % 5.2 % (1.5-5.0); GRAN # 3.99 (1.4-6.5); GRAN % 54.6 % (50.0-68.0); HEMATOCRIT 38.2 % (42.0-52.0); LYMPH # 2.2 (1.2-3.4); LYMPH % 29.9 % (22.0-35.0); MEAN CELL VOLUME 81.8 fL (80.0-105.0); MEAN CORPUSCULAR HEMOGLOBIN 26.8 pg (25.0-35.0); MEAN CORPUSCULAR HGB CONC 32.7 g/dl (31.0-37.0); MEAN PLATELET VOLUME 10.7 fl (7.0-11.0); MONO # 0.7 (0.1-0.6); MONO % 8.9 % (1.0-6.0); PLATELET COUNT 271 10^3/uL (120.0-450.0); RED CELL DISTRIBUTION WIDTH 13.5 % (11.5-14.5); WHITE BLOOD COUNT 7.3 10^3/ul (4.5-11.0)
[2016-08-19 07:38] LABS: BLOOD UREA NITROGEN 7 mg/dL (7-21); CHLORIDE 103 mmol/L (98-107); GFR AFRICAN-AMERICAN > 60; GLUCOSE,RANDOM 88 mg/dL (70-110); POTASSIUM 4.1 mmol/L (3.6-5.0); SODIUM 141 mmol/L (132-148)
[2016-08-19 07:39] LABS: ALB/GLOB RATIO 1.1 (1.1-1.8); ALKALINE PHOSPHATASE 48 U/L (38-133); ALT/SGPT 53 U/L (7-56); AST/SGOT 32 U/L (15-59); BILIRUBIN,DIRECT 0.4 mg/dL (0.0-0.4); BILIRUBIN,TOTAL 0.6 mg/dL (0.2-1.3); CALCIUM 9.3 mg/dL (8.4-10.5); CARBON DIOXIDE 26 mmol/L (21-33); MAGNESIUM 1.7 mg/dL (1.7-2.2); PHOSPHOROUS 4.7 mg/dL (2.5-4.5); TOTAL PROTEIN 7.3 g/dL (5.8-8.3)
[2016-08-19] MEDS: cefTRIAXone 1 gm 1 GM/100 ML BAG IVPB SCH (09:45)
[2016-08-19 10:46] VITALS: BP 131/82; PULSE 58; O2SAT 96
[2016-08-19 11:26] LABS: BETA 1 GLOBULIN 0.4 g/dL (0.4-0.6); BETA 2 GLOBULIN 0.4 g/dL (0.2-0.5); GAMMA GLOBULIN 1.3 g/dL (0.8-1.7)
[2016-08-19 12:14] LABS: HEMOGLOBIN F <1.0 Percent (<2.0)
--- NOTE | 2016-08-19 12:33 | DS ---
The patient is in room 375, bed 2. The patient's overnight nurse's notes were reviewed. No adverse events documented, no abdominal pain documented. The patient does not complain of any abdominal pain or any other complaints. PHYSICAL EXAMINATION: VITAL SIGNS: T-max 98.3, heart rate 65, blood pressure 114/71, 101/61, respirations 18, O2 sat 98%. HEAD: Normocephalic, atraumatic. HEENT: Shows pinkish conjunctivae, anicteric sclerae, no oropharyngeal lesion. NECK: No neck rigidity. CHEST: Kyphosis. LUNGS: Shows positive rhonchi. Improved air entry. MUSCULOSKELETAL: Shows a body mass index of 33. GAIT: Independent. DIAGNOSTICS: 08/19: WBC 7.3, hemoglobin and hematocrit 12.5 and 38.2, platelets 271. Sodium 141, potassium 4.1, chloride 103, CO2 26, anion gap 16, BUN 7, creatinine 1.0, GFR greater than 60, glucose 88, calcium 9.3, phosphorus 4.7, magnesium 1.7. Erythropoietin 24.3. Ferritin is 183. LFTs are normal. CPK is down to 397. B12, folate 911 and 11.4. Urine immunofixation is normal. Hepatitis serologies, legionella negative. Blood cultures negative. The patient seen by hematology/oncology. Their recommendations are noted. Echocardiogram reviewed, ejection fraction 57%, no thrombus, no vegetation noted. FINAL IMPRESSION, PLAN, AND DISCHARGE DIAGNOSES: 1. Community-acquired multifocal bilateral pneumonia with bibasilar atelectasis and bilateral pleural effusion, left more than the right. 2. Hepatic steatosis with fatty infiltration of the liver. 3. Normocytic iron deficiency anemia. 4. Morbid obesity with elevated body mass index of 33. 5. Questionable mild rhabdomyolysis with elevated CPK. 6. Elevated cardiac C-reactive protein and high sensitivity C-reactive protein. 7. Hypertriglyceridemia. 8. Trace microscopic hematuria. 9. Iron deficiency anemia with decreased iron, decreased TIBC, decreased iron saturation. 10. Questionable hypotension and hypovolemia. 11. Hepatomegaly with fatty infiltration of the liver and hepatic steatosis. 12. History of protein supplement use. 13. Mild normocytic iron deficiency anemia. 1. Community-acquired multifocal bilateral pneumonia with bibasilar atelectasis and bilateral pleural effusion, left more than the right. 2. Hepatic steatosis and fatty infiltration of the liver. 3. Morbid obesity with elevated body mass index of 33. 4. Hypotension. 5. Normocytic iron deficiency anemia. 6. Questionable mild rhabdomyolysis with elevated CPK. 7. Elevated cardiac C-reactive protein and high sensitivity C-reactive protein. 8. Hypertriglyceridemia. 9. Trace microscopic hematuria. 10. Morbid obesity. 11. Normocytic iron deficiency anemia. 12. Iron deficiency anemia with decreased iron, decreased TIBC, decreased iron saturation. 13. Hypotension and hypovolemia. 14. Hepatomegaly with fatty infiltration of the liver and hepatic steatosis. 15. History of protein supplement use. 1. Community-acquired multifocal bilateral pneumonia with bibasilar atelectasis , left more than the right, and bilateral pleural effusions. 2. Hepatic steatosis and fatty infiltration of the liver. 3. Morbid obesity with elevated body mass index of 33. 4. Hypotension. 5. Morbid obesity. 6. Normocytic anemia. 7. Elevated CPK. Questionable mild rhabdomyolysis. 8. Elevated cardiac C-reactive protein and high sensitivity C-reactive protein. 9. Hypertriglyceridemia. 10. Trace microscopic hematuria. 11. Anemia. 1. Left-sided chest pain, left flank pain and left abdominal pain, questionable left lower lobe early pneumonia versus pleural effusion. 2. Possible mild rhabdomyolysis with elevated CPK. 3. Hypotension. 4. Hypovolemia. 5. Mild normocytic anemia. 6. Trace microscopic hematuria. 7. Left lower lobe pleural thickening versus effusion versus infiltrate. 8. Hepatomegaly with fatty infiltration of the liver and hepatic steatosis. 9. Morbid obesity with elevated body mass index of 33. 10. History of protein supplements and use. 11. Possible myoglobinuria. PLAN: At this time, patient will be considered for discharge today. The patient is presently on: 1. Dilaudid 0.5 mg IV q. 4 p.r.n. 2. Vibramycin 100 mg IV q. 12. 3. DuoNeb nebulizer every 6 hours. 4. Heparin 5000 subQ q. 8. 5. Venofer 200 mg IV daily x 2-3 doses. 6. Rocephin 1 gram IV daily. 7. Zofran 4 mg IV q. 4 p.r.n. At this time, patient is cleared for discharge. The patient will be discharged home on following medications: Vibramycin 100 mg twice a day and Ventolin inhaler. The patient will be discharged today after today's dose of IV Venofer, IV Rocephin, IV vibramycin. DISCHARGE MEDICATIONS: Have been sent to the patient's pharmacy, [facility]. DISCHARGE FOLLOWUP: With Dr. Dunn within 1 week. The patient was advised weight loss and drink more water. The patient was advised to stop use of the protein supplement. During this hospitalization, the patient was extensively explained about the details of his medical condition, diagnosis, treatment plan, followup plan, management plan, discussed and explained to the patient at length. All questions and concerns answered during this entire hospitalization to patient's satisfaction. Time spent in the entire discharge process, more than 45 minutes. Dictated and electronically signed, not read. Misha Dunn MD cc: [id number] TT: 08/19/2016 12:33:13 en MTDD
== END 2016-08-19 14:46 | disposition home or self-care (01) | DRG 194 ==
LOC: ED 01:20 → ERH 08:41 → 3RSO 09:25
PROVIDERS: ADMIT Internal Medicine; ATTEND Internal Medicine
DX: J18.9 Pneumonia, unspecified organism (principal); J98.11 Atelectasis; M62.82 Rhabdomyolysis; I95.9 Hypotension, unspecified; J90 Pleural effusion, not elsewhere classified; K76.0 Fatty (change of) liver, not elsewhere classified; E66.01 Morbid (severe) obesity due to excess calories; E86.1 Hypovolemia; D50.9 Iron deficiency anemia, unspecified; E78.1 Pure hyperglyceridemia; R31.29 Other microscopic hematuria; Z68.33 Body mass index [BMI] 33.0-33.9, adult